=== PATIENT | female | born 1935 | race Caucasian/White ===

== ENCOUNTER 2016-11-11 19:11 | Emergency (ER) | payer MEDICARE | END 2016-11-11 21:20 | disposition home or self-care (01) | LOC: ER 19:11 | DX: S00.03XA Contusion of scalp, initial encounter (principal); S70.01XA Contusion of right hip, initial encounter; I10 Essential (primary) hypertension; Z90.49 Acquired absence of other specified parts of digestive tract; Z90.710 Acquired absence of both cervix and uterus; Z79.899 Other long term (current) drug therapy; Z88.5 Allergy status to narcotic agent; Z88.0 Allergy status to penicillin; W18.30XA Fall on same level, unspecified, initial encounter | CPT/HCPCS: 36415; 73502-RT; 96372 ==